=== PATIENT | male | born 1995 | race Caucasian/White ===

== ENCOUNTER 2019-10-12 15:34 | Inpatient (IN) | payer MEDICAID, OTHER ==
[2019-10-12] VITALS (11 sets, daily range): BP systolic 122–148; BP diastolic 61–103
[~2019-10-12] VITALS: Ht 182.9 cm; Wt 147.8 kg
[2019-10-12 16:11] LABS: CLARITY,URINE CLEAR (Clear); GLUCOSE, URINE NEGATIVE (Neg); KETONES,URINE NEGATIVE (Neg); LEUKOCYTE ESTERASE ,URINE NEGATIVE (Neg); NITRITES, URINE NEGATIVE (Neg); OCCULT BLOOD,URINE NEGATIVE (Neg); PROTEIN,URINE 30 mg/dl (Neg); UROBILINOGEN,URINE 0.2 E.U/dL (0.2-1.0)
[2019-10-12 16:13] LABS: COLOR,URINE DARK YELLOW (Yellow); UA COLLECTION TYPE CLN CATCH MIDSTREAM
[2019-10-12 16:22] LABS: BACTERIA,URINE NONE SEEN /HPF (Neg); MUCUS STRANDS MANY /LPF (Neg); RBC,URINE 0-2 /HPF (0-2); SQUAMOUS EPITHELIAL CELL,UR FEW /LPF (FEW); TRANSITIONAL EPI CELLS,URINE FEW /HPF; WBC,URINE 0-4 /HPF (0-4)
[2019-10-12 16:46] LABS: BASOPHILS % (AUTO) 0.4 % (0-1); EOSINOPHILS % (AUTO) 0.2 % (0-6); HEMATOCRIT 47.4 % (42.0-52.0); HEMOGLOBIN 16.5 g/dl (14.0-17.9); LYMPHOCYTES # (AUTO) 0.6 X10'3 (1.1-4.8); LYMPHOCYTES % (AUTO) 6.4 % (21-51); MEAN CORPUSCULAR HEMOGLOBIN 29.7 PG (27.0-31.0); MEAN CORPUSCULAR HGB CONC 34.9 g/dL (33.0-36.5); MEAN CORPUSCULAR VOLUME 85.1 FL (78-98); MEAN PLATELET VOLUME 7.9 FL (7.4-10.4); MONOCYTES # (AUTO) 0.2 X10'3 (0-0.9); MONOCYTES % (AUTO) 2.4 % (2-12); NEUTROPHILS # (AUTO) 8.3 X10'3 (1.8-7.7); NEUTROPHILS % (AUTO) 90.6 % (42-75); PLATELET COUNT 291 X10'3 (140-440); RED BLOOD COUNT 5.57 X10'6 (4.70-6.10); RED CELL DISTRIBUTION WIDTH 13.2 % (11.5-14.5); WHITE BLOOD COUNT 9.1 X10'3 (4.5-11.0)
[2019-10-12 16:54] LABS: ALANINE AMINOTRANSFERASE 45 U/L (12-78); ALBUMIN 4.3 G/DL (3.4-5.0); ALBUMIN/GLOBULIN RATIO 1.1 (1.1-1.5); ALKALINE PHOSPHATASE 62 IU/L (46-116); ANION GAP 8 (8-16); ASPARTATE AMINO TRANSFERASE 20 U/L (10-37); BLOOD UREA NITROGEN 13 MG/DL (7-18); BUN/CREATININE RATIO 11.5 (5.4-32.0); CALCIUM 9.1 MG/DL (8.5-10.1); CHLORIDE 98 MMOL/L (99-107); CREATININE 1.13 MG/DL (0.60-1.10); GLUCOSE 138 MG/DL (70-104); LIPASE 74 U/L (73-393); POTASSIUM 3.8 MMOL/L (3.5-5.1); SODIUM 138 MMOL/L (135-145); TOTAL PROTEIN 8.2 G/DL (6.4-8.2); eGFR 78 ML/MIN
[2019-10-12] MEDS ORDERED: ondansetron/PF 4mg/2ml inj IV ONE (17:00)
[2019-10-12] MEDS ORDERED: acetaminophen 325mg tablet PO ONE (17:00)
[2019-10-12] MEDS ORDERED: ketorolac trometh. 30mg/ml inj. IV ONE (17:00)
[2019-10-12] MEDS ORDERED: normal saline 1000ML IV soln IVB ONE (17:00)
[2019-10-12] MEDS ORDERED: iohexol 300mg/ml 100ml inj. ONE (17:16)
[2019-10-12] MEDS ORDERED: ampicillin/sulbac 3gm/NS 100ml 100 ML IV STA (18:14)
[2019-10-12] MEDS ORDERED: normal saline 1000ML IV soln IV ONE ×2 (18:15→18:25)
[2019-10-12] MEDS ORDERED: morphine 4 MG/ML inj SYRINge IV PRN ×2 (18:20→19:15)
[2019-10-12] MEDS ORDERED: NO HOME MEDS (18:35)
[2019-10-12] MEDS ORDERED: BUPIVAcaine/PF 2.5 mg/ml (0.25%) 30ml vial ONE (18:51)
[2019-10-12] MEDS ORDERED: ceFOXitin 2 GM ADDVANTGE BAG 50 ML IV ONE (18:51)
[2019-10-12] MEDS ORDERED: ringers solution, lacted 1,000 ML IV SCH (19:14)
[2019-10-12] MEDS ORDERED: potassium CL 10mEq/100ml bag 100 ML IV PRN ×2 (19:15)
[2019-10-12] MEDS ORDERED: HYDROmorphone inj. 0.5 MG/0.5 ML DISP.SYRIN IV PRN (19:15)
[2019-10-12] MEDS ORDERED: mag hydrox/Alum hydrox/simeth 30ml oral suspension PO PRN (19:15)
[2019-10-12] MEDS ORDERED: proCHLORperazine 10 MG/2 ml inj IV PRN (19:15)
[2019-10-12] MEDS ORDERED: HYDROmorphone 1 mg/ml syringe IV PRN (19:15)
[2019-10-12] MEDS ORDERED: magnesium 2GM in 50ml NS 50 ML IV PRN (19:15)
[2019-10-12] MEDS ORDERED: magnesium 4gm in 100ml NS 100 ML IV PRN (19:15)
[2019-10-12] MEDS ORDERED: potassium Cl 20 mEq SR tablet PO PRN ×2 (19:15)
[2019-10-12] MEDS ORDERED: ondansetron/PF 4mg/2ml inj IV PRN (19:15)
[2019-10-12] MEDS ORDERED: morphine 2 MG/ML inj. syringe IV PRN (19:15)
[2019-10-12] MEDS ORDERED: acetaminophen 325mg tablet PO PRN (19:15)
[2019-10-12] MEDS ORDERED: meperidine/PF 25mg/ml syringe IV PRN ×3 (19:15)
[2019-10-12] MEDS ORDERED: fentaNYL/PF 50MCG/1 ML 2ML syringe ONE ×2 (19:20→19:33)
[2019-10-12] MEDS ORDERED: midazolam 2 mg/2 ml injection ONE (19:20)
[2019-10-12] MEDS ORDERED: sevoflurane 250ml liquid IH ONE (19:24)
[2019-10-12] MEDS: piperacillin/tazo 4.5gm/100ml 100 ML IV SCH (20:00)
[2019-10-12] MEDS: K and/or MAG REPLACEMENT MC SCH (20:00)
--- NOTE | 2019-10-12 20:32 | NUR ---
Received from OR via , accompanied by Anesthesiologist DR SMITH and report given by Anesthesiolgist. PT IS SLEEPY BUT WAKES TO VOICE, SKIN WARM AND PINK, SNORING RESPIRATIONS, PIV LEFT FA 20 SL AND PIV RIGHT AC 20G WITH LR 100ML/HR, SCDS, ABD HAS 3 LARGE BANDAIDS CD, NO C/O PAIN.
--- NOTE | 2019-10-12 20:51 | NUR ---
Report called to receiving nurse. Transferred via BED Belongings . Special Issues communicated to receiving nurse MARYSOL AYALA. PT IS AWAKE, ALERT AND VISITING WITH FAMILY, SKIN WARM AND PINK, NO C/O PAIN, SCD'S ON, PIV RIGHT AC PATENT WITH LR 100ML/HR, LEFT FA 20G SL, PT MEETS DISCHARGE CRITERIA, DAMIÁN ICE CHIPS, VSS.
--- NOTE | 2019-10-12 21:43 | NUR ---
Report received from Peggy AYALA in recovery. Patient just had lap appy and he is in the room resting with family by his bedside. He was tachycardic on arrival but the heart rate is back to lower 100s. charge nurse notified and will continue to monitor. Patient denies having pain.
[2019-10-12] MEDS: normal saline 1000ml 1,000 ML IV SCH (22:15)
[2019-10-12] MEDS ORDERED: ondansetron/PF 4mg/2ml inj ONE (22:56)
[2019-10-12] MEDS ORDERED: LIDOcaine 2% (20mg/ml) 5ml vial ONE (22:56)
[2019-10-12] MEDS ORDERED: neostigmine methylsulfate 1 MG/ML 10ml vial ONE (22:56)
[2019-10-12] MEDS ORDERED: rocuronium 10mg/ml inj IV ONE (22:56)
[2019-10-12] MEDS ORDERED: propofol inj 20 ML IV ONE (22:56)
[2019-10-12] MEDS ORDERED: succinylcholine 20mg/ml inj IV ONE (22:56)
[2019-10-12] MEDS ORDERED: glycopyrrolate 0.2mg/ml inj ONE (22:56)
[2019-10-13] VITALS: BP 142/79
[2019-10-13 00:45] VITALS: BP 118/62
[2019-10-13 04:56] LABS: BASOPHILS % (AUTO) 0.1 % (0-1); EOSINOPHILS % (AUTO) 0.1 % (0-6); HEMATOCRIT 40.9 % (42.0-52.0); HEMOGLOBIN 13.9 g/dl (14.0-17.9); LYMPHOCYTES # (AUTO) 0.7 X10'3 (1.1-4.8); LYMPHOCYTES % (AUTO) 6.6 % (21-51); MEAN CORPUSCULAR HEMOGLOBIN 29.4 PG (27.0-31.0); MEAN CORPUSCULAR VOLUME 86.4 FL (78-98); MEAN PLATELET VOLUME 8.3 FL (7.4-10.4); MONOCYTES # (AUTO) 0.8 X10'3 (0-0.9); MONOCYTES % (AUTO) 7.6 % (2-12); NEUTROPHILS # (AUTO) 9.4 X10'3 (1.8-7.7); NEUTROPHILS % (AUTO) 85.6 % (42-75); PLATELET COUNT 219 X10'3 (140-440); RED BLOOD COUNT 4.74 X10'6 (4.70-6.10)
[2019-10-13] MEDS: normal saline 1000ml 1,000 ML IV SCH ×3 (05:14→17:06)
[2019-10-13 05:15] LABS: ALANINE AMINOTRANSFERASE 63 U/L (12-78); ALBUMIN 2.8 G/DL (3.4-5.0); ALBUMIN/GLOBULIN RATIO 0.8 (1.1-1.5); ALKALINE PHOSPHATASE 43 IU/L (46-116); ANION GAP 9 (8-16); ASPARTATE AMINO TRANSFERASE 46 U/L (10-37); BILIRUBIN,TOTAL 1.8 MG/DL (0.1-1.0); BLOOD UREA NITROGEN 11 MG/DL (7-18); BUN/CREATININE RATIO 10.1 (5.4-32.0); CALCIUM 7.5 MG/DL (8.5-10.1); CHLORIDE 103 MMOL/L (99-107); CREATININE 1.09 MG/DL (0.60-1.10); GLUCOSE 122 MG/DL (70-104); MAGNESIUM 1.3 MG/DL (1.5-2.4); POTASSIUM 3.9 MMOL/L (3.5-5.1); SODIUM 137 MMOL/L (135-145); TOTAL CARBON DIOXIDE 25.3 MMOL/L (24-32); TOTAL PROTEIN 6.3 G/DL (6.4-8.2); eGFR 82 ML/MIN
--- NOTE | 2019-10-13 06:30 | NUR ---
Patient in room [facility]. I have received report from JAMIE Lin and had the opportunity to ask questions and assume patient care.
--- NOTE | 2019-10-13 06:36 | NUR ---
Problems reprioritized. Patient report given, questions answered & plan of care reviewed with NITISH AYALA.Patient resting with no apparent distress.
[2019-10-13] MEDS: piperacillin/tazo 4.5gm/100ml 100 ML IV SCH ×2 (07:43→19:49)
[2019-10-13 08:00] VITALS: BP 104/58
[2019-10-13] MEDS: K and/or MAG REPLACEMENT MC SCH ×2 (08:00→19:42)
[2019-10-13] MEDS ORDERED: FLU VACC QS2019-20 36MOS UP/PF 60 MCG/0.5 ML SYRINGE IMVAC ONE (10:00)
[2019-10-13] MEDS: magnesium Cl slow-release 64mg tablet PO PRN ×2 (10:36→22:06)
[2019-10-13 11:00] VITALS: BP 136/84
[2019-10-13] MEDS: HYDROcodone/acetaminophen 10/325mg tab PO PRN ×3 (12:34→22:05)
[2019-10-13] MEDS: ondansetron/PF 4mg/2ml inj IV PRN ×2 (12:43→18:44)
--- NOTE | 2019-10-13 18:32 | NUR ---
Problems reprioritized. Patient report given, questions answered & plan of care reviewed with JAMIE Samson.
--- NOTE | 2019-10-13 18:39 | NUR ---
Patient in room [facility]. I have received report from JAMIE Kothari and had the opportunity to ask questions and assume patient care.
[2019-10-13 19:44] VITALS: BP 143/86
[2019-10-14] VITALS: BP 127/67
[2019-10-14] MEDS: normal saline 1000ml 1,000 ML IV SCH ×2 (03:21→13:58)
[2019-10-14] MEDS: HYDROcodone/acetaminophen 10/325mg tab PO PRN ×3 (04:30→21:24)
[2019-10-14 05:20] LABS: BASOPHILS % (AUTO) 0.2 % (0-1); EOSINOPHILS # (AUTO) 0.1 X10'3 (0-0.9); HEMATOCRIT 35.9 % (42.0-52.0); HEMOGLOBIN 12.4 g/dl (14.0-17.9); LYMPHOCYTES # (AUTO) 0.6 X10'3 (1.1-4.8); LYMPHOCYTES % (AUTO) 6.8 % (21-51); MEAN CORPUSCULAR HEMOGLOBIN 29.8 PG (27.0-31.0); MEAN CORPUSCULAR HGB CONC 34.6 g/dL (33.0-36.5); MEAN PLATELET VOLUME 8.1 FL (7.4-10.4); MONOCYTES # (AUTO) 0.7 X10'3 (0-0.9); MONOCYTES % (AUTO) 7.7 % (2-12); NEUTROPHILS # (AUTO) 7.9 X10'3 (1.8-7.7); NEUTROPHILS % (AUTO) 84.3 % (42-75); PLATELET COUNT 186 X10'3 (140-440); RED BLOOD COUNT 4.18 X10'6 (4.70-6.10); RED CELL DISTRIBUTION WIDTH 13.2 % (11.5-14.5); WHITE BLOOD COUNT 9.3 X10'3 (4.5-11.0)
[2019-10-14 05:28] LABS: ALANINE AMINOTRANSFERASE 53 U/L (12-78); ALBUMIN 2.5 G/DL (3.4-5.0); ALBUMIN/GLOBULIN RATIO 0.6 (1.1-1.5); ALKALINE PHOSPHATASE 48 IU/L (46-116); ANION GAP 5 (8-16); ASPARTATE AMINO TRANSFERASE 30 U/L (10-37); BILIRUBIN,TOTAL 1.1 MG/DL (0.1-1.0); BLOOD UREA NITROGEN 9 MG/DL (7-18); BUN/CREATININE RATIO 8.3 (5.4-32.0); CALCIUM 8.3 MG/DL (8.5-10.1); CHLORIDE 102 MMOL/L (99-107); CREATININE 1.09 MG/DL (0.60-1.10); GLUCOSE 102 MG/DL (70-104); MAGNESIUM 1.6 MG/DL (1.5-2.4); POTASSIUM 3.5 MMOL/L (3.5-5.1); SODIUM 135 MMOL/L (135-145); TOTAL CARBON DIOXIDE 27.6 MMOL/L (24-32); TOTAL PROTEIN 6.4 G/DL (6.4-8.2); eGFR 82 ML/MIN
--- NOTE | 2019-10-14 06:03 | NUR ---
Problems reprioritized. Patient report given, questions answered & plan of care reviewed with JAMIE Reyna.
--- NOTE | 2019-10-14 06:03 | NUR ---
Patient in room [facility]. I have received report from JAMIE Samson and had the opportunity to ask questions and assume patient care.
[2019-10-14] MEDS: piperacillin/tazo 4.5gm/100ml 100 ML IV SCH ×2 (07:43→19:37)
[2019-10-14 07:50] VITALS: BP 136/96
[2019-10-14 08:00] VITALS: BP 133/73
[2019-10-14] MEDS: K and/or MAG REPLACEMENT MC SCH ×2 (08:00→20:00)
[2019-10-14 11:30] VITALS: BP 149/78
[2019-10-14 18:00] VITALS: BP 140/83
--- NOTE | 2019-10-14 18:18 | NUR ---
Patient in room [facility]. I have received report from Alanis AYALA and had the opportunity to ask questions and assume patient care.
--- NOTE | 2019-10-14 18:20 | NUR ---
Problems reprioritized. Patient report given, questions answered & plan of care reviewed with JAMIE Hoang.
[2019-10-14] MEDS: lactobacillus rhamnosus 10,000 MMU CELLS/CAPSULE PO SCH (19:36)
[2019-10-14 20:00] VITALS: BP 140/83
[2019-10-15 00:16] VITALS: BP 116/77
[2019-10-15] MEDS: normal saline 1000ml 1,000 ML IV SCH ×2 (00:26→17:24)
[2019-10-15] MEDS: HYDROcodone/acetaminophen 10/325mg tab PO PRN ×3 (04:32→23:18)
[2019-10-15 05:21] LABS: BASOPHILS % (AUTO) 0.2 % (0-1); EOSINOPHILS # (AUTO) 0.3 X10'3 (0-0.9); EOSINOPHILS % (AUTO) 3.3 % (0-6); HEMATOCRIT 34.6 % (42.0-52.0); HEMOGLOBIN 11.6 g/dl (14.0-17.9); LYMPHOCYTES # (AUTO) 0.7 X10'3 (1.1-4.8); LYMPHOCYTES % (AUTO) 7.4 % (21-51); MEAN CORPUSCULAR HEMOGLOBIN 29.1 PG (27.0-31.0); MEAN CORPUSCULAR HGB CONC 33.7 g/dL (33.0-36.5); MEAN CORPUSCULAR VOLUME 86.4 FL (78-98); MEAN PLATELET VOLUME 8.4 FL (7.4-10.4); MONOCYTES # (AUTO) 0.9 X10'3 (0-0.9); MONOCYTES % (AUTO) 10.5 % (2-12); NEUTROPHILS % (AUTO) 78.6 % (42-75); PLATELET COUNT 209 X10'3 (140-440); RED CELL DISTRIBUTION WIDTH 13.3 % (11.5-14.5); WHITE BLOOD COUNT 8.9 X10'3 (4.5-11.0)
[2019-10-15 05:38] LABS: ALANINE AMINOTRANSFERASE 45 U/L (12-78); ALBUMIN 2.2 G/DL (3.4-5.0); ALBUMIN/GLOBULIN RATIO 0.5 (1.1-1.5); ALKALINE PHOSPHATASE 55 IU/L (46-116); ANION GAP 6 (8-16); ASPARTATE AMINO TRANSFERASE 23 U/L (10-37); BILIRUBIN,TOTAL 0.9 MG/DL (0.1-1.0); BLOOD UREA NITROGEN 8 MG/DL (7-18); BUN/CREATININE RATIO 8.1 (5.4-32.0); CALCIUM 8.3 MG/DL (8.5-10.1); CHLORIDE 101 MMOL/L (99-107); CREATININE 0.99 MG/DL (0.60-1.10); GLUCOSE 99 MG/DL (70-104); MAGNESIUM 1.8 MG/DL (1.5-2.4); POTASSIUM 3.5 MMOL/L (3.5-5.1); SODIUM 136 MMOL/L (135-145); TOTAL CARBON DIOXIDE 29.1 MMOL/L (24-32); TOTAL PROTEIN 6.4 G/DL (6.4-8.2); eGFR > 90 ML/MIN
--- NOTE | 2019-10-15 06:14 | NUR ---
Problems reprioritized. Patient report given, questions answered & plan of care reviewed with Alanis AYALA.
--- NOTE | 2019-10-15 06:15 | NUR ---
Patient in room [facility]. I have received report from JAMIE Hoang and had the opportunity to ask questions and assume patient care.
[2019-10-15 06:55] VITALS: BP 120/82
[2019-10-15] MEDS: lactobacillus rhamnosus 10,000 MMU CELLS/CAPSULE PO SCH ×2 (08:23→19:50)
[2019-10-15] MEDS: piperacillin/tazo 4.5gm/100ml 100 ML IV SCH ×3 (08:23→19:50)
[2019-10-15] MEDS: K and/or MAG REPLACEMENT MC SCH ×2 (08:24→20:00)
[2019-10-15 12:03] VITALS: BP 147/91
[2019-10-15 18:00] VITALS: BP 148/93
--- NOTE | 2019-10-15 18:17 | NUR ---
Problems reprioritized. Patient report given, questions answered & plan of care reviewed with JAMIE Hoang.
[2019-10-16 00:01] VITALS: BP 130/103
[2019-10-16] MEDS: normal saline 1000ml 1,000 ML IV SCH ×2 (03:09→11:41)
[2019-10-16 05:27] LABS: BASOPHILS % (AUTO) 0.4 % (0-1); EOSINOPHILS # (AUTO) 0.4 X10'3 (0-0.9); HEMATOCRIT 33.9 % (42.0-52.0); HEMOGLOBIN 11.5 g/dl (14.0-17.9); LYMPHOCYTES # (AUTO) 0.9 X10'3 (1.1-4.8); LYMPHOCYTES % (AUTO) 12.5 % (21-51); MEAN CORPUSCULAR HEMOGLOBIN 29.1 PG (27.0-31.0); MEAN CORPUSCULAR HGB CONC 33.8 g/dL (33.0-36.5); MEAN CORPUSCULAR VOLUME 85.9 FL (78-98); MEAN PLATELET VOLUME 8.2 FL (7.4-10.4); MONOCYTES # (AUTO) 1.1 X10'3 (0-0.9); MONOCYTES % (AUTO) 14.3 % (2-12); NEUTROPHILS % (AUTO) 67.8 % (42-75); PLATELET COUNT 224 X10'3 (140-440); RED BLOOD COUNT 3.94 X10'6 (4.70-6.10); RED CELL DISTRIBUTION WIDTH 13.5 % (11.5-14.5); WHITE BLOOD COUNT 7.4 X10'3 (4.5-11.0)
[2019-10-16 05:50] LABS: ALANINE AMINOTRANSFERASE 60 U/L (12-78); ALBUMIN 2.1 G/DL (3.4-5.0); ALBUMIN/GLOBULIN RATIO 0.5 (1.1-1.5); ALKALINE PHOSPHATASE 64 IU/L (46-116); ANION GAP 5 (8-16); ASPARTATE AMINO TRANSFERASE 50 U/L (10-37); BLOOD UREA NITROGEN 7 MG/DL (7-18); BUN/CREATININE RATIO 8.1 (5.4-32.0); CALCIUM 8.6 MG/DL (8.5-10.1); CHLORIDE 101 MMOL/L (99-107); CREATININE 0.86 MG/DL (0.60-1.10); GLUCOSE 95 MG/DL (70-104); MAGNESIUM 1.8 MG/DL (1.5-2.4); POTASSIUM 3.2 MMOL/L (3.5-5.1); SODIUM 136 MMOL/L (135-145); TOTAL CARBON DIOXIDE 30.5 MMOL/L (24-32); TOTAL PROTEIN 6.7 G/DL (6.4-8.2); eGFR > 90 ML/MIN
--- NOTE | 2019-10-16 06:00 | NUR ---
Problems reprioritized. Patient report given, questions answered & plan of care reviewed with JAMIE Hoang.
--- NOTE | 2019-10-16 06:05 | NUR ---
Problems reprioritized. Patient report given, questions answered & plan of care reviewed with Corky AYALA.
[2019-10-16 07:00] VITALS: BP 148/90
[2019-10-16] MEDS: K and/or MAG REPLACEMENT MC SCH ×2 (08:00→19:24)
[2019-10-16] MEDS: lactobacillus rhamnosus 10,000 MMU CELLS/CAPSULE PO SCH ×2 (09:10→19:31)
[2019-10-16] MEDS: piperacillin/tazo 4.5gm/100ml 100 ML IV SCH ×2 (09:10→19:31)
[2019-10-16] MEDS: HYDROcodone/acetaminophen 10/325mg tab PO PRN ×3 (09:16→21:46)
[2019-10-16] MEDS ORDERED: potassium Cl 20 mEq SR tablet PO PRN (11:20)
[2019-10-16] MEDS ORDERED: magnesium Cl slow-release 64mg tablet PO PRN (11:20)
[2019-10-16] MEDS ORDERED: potassium CL 10mEq/100ml bag 100 ML IV PRN (11:20)
[2019-10-16] MEDS ORDERED: magnesium 4gm in 100ml NS 100 ML IV PRN (11:20)
[2019-10-16] MEDS ORDERED: magnesium 2GM in 50ml NS 50 ML IV PRN (11:20)
[2019-10-16] MEDS: potassium Cl 20 mEq SR tablet PO PRN ×3 (11:41→19:31)
[2019-10-16 12:00] VITALS: BP 136/81
--- NOTE | 2019-10-16 18:28 | NUR ---
Problems reprioritized. Patient report given, questions answered & plan of care reviewed with JAMIE Andrews.
[2019-10-16 19:00] VITALS: BP 141/98
[2019-10-17] VITALS: BP 157/81
[2019-10-17 05:23] LABS: BASOPHILS % (AUTO) 0.3 % (0-1); EOSINOPHILS # (AUTO) 0.4 X10'3 (0-0.9); EOSINOPHILS % (AUTO) 4.1 % (0-6); HEMATOCRIT 34.8 % (42.0-52.0); HEMOGLOBIN 11.8 g/dl (14.0-17.9); LYMPHOCYTES # (AUTO) 1.2 X10'3 (1.1-4.8); LYMPHOCYTES % (AUTO) 13.4 % (21-51); MEAN CORPUSCULAR HEMOGLOBIN 28.9 PG (27.0-31.0); MEAN CORPUSCULAR HGB CONC 33.8 g/dL (33.0-36.5); MEAN CORPUSCULAR VOLUME 85.4 FL (78-98); MEAN PLATELET VOLUME 7.9 FL (7.4-10.4); MONOCYTES % (AUTO) 11.6 % (2-12); NEUTROPHILS # (AUTO) 6.3 X10'3 (1.8-7.7); NEUTROPHILS % (AUTO) 70.6 % (42-75); PLATELET COUNT 260 X10'3 (140-440); RED BLOOD COUNT 4.07 X10'6 (4.70-6.10); RED CELL DISTRIBUTION WIDTH 13.7 % (11.5-14.5); WHITE BLOOD COUNT 8.9 X10'3 (4.5-11.0)
[2019-10-17 05:47] LABS: ALANINE AMINOTRANSFERASE 86 U/L (12-78); ALBUMIN 2.1 G/DL (3.4-5.0); ALBUMIN/GLOBULIN RATIO 0.5 (1.1-1.5); ALKALINE PHOSPHATASE 90 IU/L (46-116); ANION GAP 7 (8-16); ASPARTATE AMINO TRANSFERASE 60 U/L (10-37); BLOOD UREA NITROGEN 5 MG/DL (7-18); BUN/CREATININE RATIO 6.4 (5.4-32.0); CALCIUM 8.8 MG/DL (8.5-10.1); CHLORIDE 101 MMOL/L (99-107); CREATININE 0.78 MG/DL (0.60-1.10); GLUCOSE 91 MG/DL (70-104); MAGNESIUM 1.8 MG/DL (1.5-2.4); POTASSIUM 3.6 MMOL/L (3.5-5.1); SODIUM 138 MMOL/L (135-145); TOTAL PROTEIN 6.2 G/DL (6.4-8.2); eGFR > 90 ML/MIN
[2019-10-17 07:36] LABS: TOTAL CELLS COUNTED 100
[2019-10-17 07:38] LABS: PLATELET ESTIMATE NORMAL; POLYCHROMASIA FEW; STOMATOCYTES 1+
[2019-10-17 08:00] VITALS: BP 157/92
[2019-10-17] MEDS: K and/or MAG REPLACEMENT MC SCH (08:00)
[2019-10-17] MEDS: lactobacillus rhamnosus 10,000 MMU CELLS/CAPSULE PO SCH (08:38)
[2019-10-17] MEDS: piperacillin/tazo 4.5gm/100ml 100 ML IV SCH (08:38)
[2019-10-17] MEDS ORDERED: HYDR-4353 PO (10:39)
[2019-10-17] MEDS ORDERED: AMOX-422 PO (10:39)
[2019-10-17] MEDS: HYDROcodone/acetaminophen 10/325mg tab PO PRN (11:56)
[2019-10-17 12:00] VITALS: BP 149/91
--- NOTE | 2019-10-17 12:01 | NUR ---
Patient had a small bowel movement confirmed by patient personal care assistant MD Winter Urena Contacted stated okay with D/Cing today.
--- NOTE | 2019-10-17 14:20 | NUR ---
Patient discharged home into the care of brother. Patient verbalized understanding of discharge instructions and discharge was okayed by MD Max after being notified that the patient had a small stool. [facility] medications sent to [facility] on [address]. Patient will follow up with MD Estrada within one week. Pain meds escripted to pharmacy. IV removed, Tele removed. BP rechecked to be 149/91. Patient alert, oriented, and appropriate for discharge. Patient left with all belongings and escorted down by a member of the staff.
[2019-10-17] MEDS ORDERED: amox tr/potassium clavulanate 875/125mg TAB PO SCH (17:30)
[2019-10-17] MEDS ORDERED: magnesium hydroxide 30ml (MOM) UD suspension PO SCH (20:00)
== END 2019-10-17 14:24 | disposition home or self-care (01) | DRG 853 ==
LOC: ER 15:35 → ED HOLD 19:24 → SUR 3N 20:07
PROVIDERS: ADMIT Family Medicine; ATTEND Family Medicine
PROC: BW211ZZ Computerized Tomography (CT Scan) of Abdomen and Pelvis using Low Osmolar Contrast (ICD-10-PCS; 2019-10-12)
PROC: 0DTJ4ZZ Resection of Appendix, Percutaneous Endoscopic Approach (ICD-10-PCS; principal; 2019-10-12 19:24)
DX: A41.9 Sepsis, unspecified organism (principal); K35.32 Acute appendicitis with perforation, localized peritonitis, and gangrene, without abscess; K76.0 Fatty (change of) liver, not elsewhere classified; Z82.0 Family history of epilepsy and other diseases of the nervous system
CPT/HCPCS: 96365; 96375; 99285; Z7506; 36415; 74177; 80053; 81001; 83605; 83690; 83735; 85025; 87040; 87081; 93005; A4215; A4618; A7000; G0378; J0295; J0330; J0694; J1170; J1885; J2001; J2250; J2405; J2543; J2704; J2710; J3010; J3490; J7030; J7120; Q2037; Q9967